=== PATIENT | female | born 1980 | race Caucasian/White ===

== ENCOUNTER → 2018-08-07 | Outpatient (CLI) | payer BC | LOC: COL.LAB 13:55 | DX: K58.9 Irritable bowel syndrome, unspecified (principal) ==

== ENCOUNTER → 2020-03-31 | Outpatient (CLI) | payer BC | LOC: MC.RAD 08:00 | DX: R92.8 Other abnormal and inconclusive findings on diagnostic imaging of breast (principal) ==

== ENCOUNTER → 2020-08-25 | Outpatient (CLI) | payer BC ==
[~2020-08-25] MED LIST: DIFLUCAN 100MG100 MG PO
== END ==
LOC: MC.RAD 12:52
DX: N60.02 Solitary cyst of left breast (principal); Z98.890 Other specified postprocedural states; N63.20 Unspecified lump in the left breast, unspecified quadrant; N64.4 Mastodynia

== ENCOUNTER 2021-01-26 11:48 | Day surgery (SDC) | payer BC ==
[~2021-01-26] VITALS: Ht 162.6 cm; Wt 84.1 kg
[2021-01-26] MEDS ORDERED: DIFLUCAN 100MG100 MG PO (13:04)
[2021-01-26 13:27] VITALS: BP 114/75; PULSE 73; TEMP 97.5
[2021-01-26 14:20] VITALS: BP 105/66; PULSE 60; TEMP 97.1
--- NOTE | 2021-01-26 14:20 | NUR ---
PATIENT TRANSPORTED PER CART FROM GI SUITE TO BAY 3 ACCOMPANIED BY ENDO RN. PATIENT AMBULATED FROM CART TO CHAIR. SLOW STEADY GAIT WITH 1 ASSIST. PATIENT TALKING WITH STAFF. DENIES NAUSEA AND DISCOMFORT. VERBAL REPORT RECEIVED. PATIENT GIVEN MUFFIN AND SPRITE.
[2021-01-26 14:30] VITALS: BP 105/63; PULSE 68
[2021-01-26 14:45] VITALS: BP 118/77; PULSE 65
--- NOTE | 2021-01-26 14:50 | NUR ---
VSS ON ROOM AIR. PATIENT TOLERATES FOOD AND DRINK WITHOUT PROBLEMS. SPEAKS WITH PATIENT. 1453 DISCHARGE INSTRUCTIONS GIVEN VERBAL AND DISCHARGE PACKET PROVIDED TO PATIENT. QUESTIONS ANSWERED AND PATIENT VOICED UNDERSTANDING. PATIENT CHANGES INTO STREET CLOTHES. 1505 PATIENT DISCHARGE PER WHEEL CHAIR ACCOMPANIED BY AMB RN TO PRIVATE VECHILE DRIVEN BY .
== END 2021-01-26 15:05 | disposition home or self-care (01) ==
LOC: SDCO 11:48
DX: D12.5 Benign neoplasm of sigmoid colon (principal); K64.1 Second degree hemorrhoids; K21.9 Gastro-esophageal reflux disease without esophagitis; R19.7 Diarrhea, unspecified; K62.5 Hemorrhage of anus and rectum; R19.5 Other fecal abnormalities; K59.00 Constipation, unspecified; I95.1 Orthostatic hypotension; F41.9 Anxiety disorder, unspecified; Z90.89 Acquired absence of other organs; Z20.822 Contact with and (suspected) exposure to COVID-19; Z79.899 Other long term (current) drug therapy; Z98.51 Tubal ligation status; Z80.9 Family history of malignant neoplasm, unspecified
CPT/HCPCS: J2704; J7120

== ENCOUNTER → 2022-07-30 | Outpatient (CLI) | payer BC | LOC: MC.RAD 14:00 | DX: N63.20 Unspecified lump in the left breast, unspecified quadrant (principal) ==